=== PATIENT | male | born 1965 | race Two or more races ===

== ENCOUNTER 2025-02-04 11:00 | Outpatient (OUT) | payer MEDICARE, SELFPAY ==
--- OUTSIDE RECORDS SUMMARY | 2025-02-04 11:02 | XMS_ITS | Clinical Summary ---
Author Organization [employer] tem Address [id number] [address] [place] [address] Care Team Providers Care Policy Change Clerks Supervisor Name Role Phone Phil Khalil MD Primary Care Provider [phone] Allergies Active AllergyReactionsCriticalityNoted DateCommentsBee Venom Protein (Honey Bee)05/11/2018 Medications MedicationSigDispense QuantityRefillsLast FilledStart DateEnd DateStatus nicotine (NICODERM CQ) 7 mg/[address] 1 patch on the skin daily.Active gabapentin (NEURONTIN) 600 mg tablet Take 600 mg by mouth 3 (three) times a day.Active melatonin (CIRCADIN) 5 mg tablet Take 5 mg by mouth once daily at bedtime.Active ferrous sulfate (IRON) 325 (65 FE) mg tablet Take 325 mg by mouth daily with breakfast.Active vitamin E,dl-alpha tocopherol, (VITAMIN E, BULK, MISC) Take 180 mg by mouth daily.Active buPROPion HCl, smoking deter, (ZYBAN) 150 mg 12 hr tablet Take 150 mg by mouth Daily at 0630.Active HYDROcodone-acetaminophen (NORCO) 5-325 mg per tablet Take 1 tablet by mouth every 8 (eight) hours as needed for pain.Active aspirin 325 mg tablet Take 325 mg by mouth daily.Active docusate sodium 100 mg capsule Take 100 mg by mouth 2 (two) times a day.Active FLUoxetine (PROzac) 20 MG tablet Take 20 mg by mouth daily.Active aclidinium bromide (TUDORZA PRESSAIR) 400 mcg/actuation aerosol powdr breath activated Inhale 1 puff Daily at 0630.Active albuterol (PROVENTIL HFA;VENTOLIN HFA) 90 mcg/actuation inhaler Inhale 1 puff daily as needed for shortness of breath.Active budesonide-formoterol (SYMBICORT) 160-4.5 mcg/actuation inhaler Inhale 2 puffs 2 (two) times a day.Active diphenhydrAMINE (BENADRYL) 25 mg capsule Take 25 mg by mouth nightly as needed for allergies.Active Social History Tobacco UseTypesPacks/DayYears UsedDateSmoking Tobacco: Never AssessedChildcare AnswerDate KakmxxwmLhehseyzwNzzmpyk77/12/2019EmploymentAnswerDate Recorded DdqsigrbijWwuuedg67/12/2019Purpose - LifeAnswerDate RecordedPurpose and direction in jubrXjtnoux46/11/2021ex and Gender InformationValueDate Recorded Sex Assigned at BirthNot on fileLegal OmpMhrz3410/20/2014 11:21 AM EDTGender IdentityNot on fileSexual OrientationNot on file Last Filed Vital Signs Vital SignReadingTime TakenCommentsBlood Lyoguexl821/8204 12:33 PM EDT Kseta5168 12:33 PM NFFObdvklitodz62.8 ??C (98.2 ??F)06/25/2018 12:33 PM EDTRespiratory Kpwh2362 12:33 PM EDTOxygen Bffhmqcyib86%06/03/2018 1:03 PM EDTInhaled Oxygen Concentration--Zlgwsr630.9 kg (315 lb)05/11/2018 1:20 PM STZMjxptm372.7 cm (5' 8 )05/11/2018 1:20 PM ESTBody Mass Index47.902 1:20 PM EST Plan of Treatment Not on file Medical Devices Not on file Insurance Care Teams Team MemberRelationshipSpecialtyStart DateEnd Date Phil [place] [address] [place] [address] [facility]
--- OUTSIDE RECORDS SUMMARY | 2025-02-04 11:02 | XMS_ITS | Clinical Summary ---
Author Organization [facility] Address [address] [place] [address] Care Team Providers Care Control Clerk Head Name Role Phone Phil Khalil MD Primary Care Provider Phil Khalil MD Unavailable Allergies Active AllergyReactionsCriticalityNoted DateCommentsBee Venom09/04/2022 Other Reaction(s): Unknown Medications MedicationSigDispense QuantityRefillsLast FilledStart DateEnd DateStatus ipratropium-albuterol (Duo-Neb) 0.5-2.5 mg/3 mL nebulizer solution every 6 (six) hours.2Active gabapentin (Neurontin) 300 MG capsule Indications:Other chronic painTake 1 capsule (300 mg) by mouth every 12 (twelve) hours 60 capsule 5Active budesonide-formoterol (Symbicort) 160-4.5 MCG/ACT inhaler Indications:Chronic obstructive pulmonary disease, unspecified (HCC)Inhale 2 puffs in the morning and 2 puffs before bedtime. 10.2 each 1205Active tiotropium (Spiriva Respimat) 2.5 MCG/ACT inhaler Indications:Chronic obstructive pulmonary disease, unspecified COPD type (HCC) Inhale 2 puffs Daily 4 g 5Active albuterol HFA 90 mcg/act inhaler Indications:Chronic obstructive pulmonary disease, unspecified COPD type (HCC) INHALE 1 PUFF BY MOUTH EVERY 4 HOURS NEEDED FOR WHEEZE 18 g 5Active Active Problems ProblemNoted DateDiagnosed DateMedicare annual wellness visit, subsequent 07/27/2024 Assessment & Plan (07/27/2024 2:53 PM EDT): Colonoscopy every 10 years or Cologuard every 3 years ages 50-75 Flu Vaccine yearly Pneumovax and Prevnar Mammo yearly for women and PSA yearly for men Labs/Screening yearly to rule out Diabetes, Chronic Kidney disease and liver disease Hepatitis Screen forat risk populations Shingles vaccine after65 if indicated Tetanus Vaccine every 10 years Lipids yearly under the age of 75 If Smoking history: one time CT scan of chest and Ultrasound of Aorta to screen for Anuerysm Benign essential lbitwzfkxuax76/13/2025 Assessment & Plan (07/27/2024 2:53 PM EDT): Our specific goals, for your hypertension, is to keep your blood pressure less than 140/90, and theimportance of weight control. We made recommendations on how to control your blood pressure, and minimize your risk of these copmplications. We also discussed your current barriers to a healthy living and importance of healthy diet and exercise. Prior to your visit today we have reviewed your chart and formed a plan to assist with providing you the best possible care. We reviewed the possible complications of hypertension including, stroke, heart failure and kidney impairment. In addition, we discussed your medications, the importance of taking them as prescribed. DASH diet handouts Body mass index (BMI) 35.0-35.9, adult07/27/2024 Assessment & Plan (07/27/2024 3:10 PM EDT): Diet and Exercise Encouraged Bilateral primary osteoarthritis of knee4121Trxolt16/21/2023Chronic obstructive pulmonary disease, qilfxcvdicu96/21/2023 Assessment & Plan (07/27/2024 2:53 PM EDT): Today we discussed the possible complications of COPD, including increased risk of respiratory failure, hospitalization and . Your goal for your COPD management are maintain a healthy weight with a BMI of less than 26 and prevent future hospitalizations by using your medications as prescribed and avoiding environments with smoke exposure. We are working together to achieve these goals with the following plans increase activity levels, compliance of medications and a healthier diet. You have been given education handouts and a summary of your care plan. Chronic pain09/04/2022 Assessment & Plan (07/27/2024 2:54 PM EDT): Medication choice and dosage is appropriate for patient's current medical conditions. Patient will continue to be required to be seen in our office at least every three months for monitoring. At eachfollow up visit I will reassess the patient's need for the medication. Patient is to have this medication prescribed only through this office. Failure to follow the rules and regulations will result in tapering and discontinuation of medications if applicable. Patient verbalized understanding. OARRS Report was reviewed for this patient. Pain09/04/20226955Cirluzfosacg52/21/5225Dbexnggtlftosq29/21/2023 Assessment & Plan (07/27/2024 2:53 PM EDT): This is a chronic medical condition that is stable since last assessment. No changes in treatment are suggested at this time. Continue Current meds. Major depressive disorder, single episode, upejzyoexvm50/21/2023Morbid (severe) obesity due to excess yaoihlgp15/21/2023 Assessment & Plan (07/27/2024 3:09 PM EDT): Diet and exercise encouraged Primary osteoarthritis of right ugzswech81/21/2023Skin sensation disturbance 09/04/2022Sleep apnea09/04/2022Tobacco tiwoxysnmj09/21/2023Swelling of lower leg 09/18/2017Pain in unspecified knee09/18/2017Rupture of quadriceps tendon 09/15/2017Strain of quadriceps wfjoss7309/15/2017 Overview (02/14/2023): bilateral Immunizations ImmunizationAdministration DatesNext DueInfluenza, injectable, quadrivalent, preservative free02/14/2023,02/26/2022Influenza, seasonal, intradermal, preservative free01/20/2018Tdap08/18/2017 Family History Medical HistoryRelationNameCommentsDiabetesFatherStrokeFatherhtnMotherRelation NameStatusCommentsFatherDeceasedMotherDeceased Social History Tobacco UseTypesPacks/DayYears UsedDateSmoking Tobacco: Every DayCigarettes0.3 11.9Started: 2014Smokeless Tobacco: Never Tobacco Cessation:Ready to Q uit: Not Asked; Counseling Given: Not Answered Alcohol UseStandard Drinks/WeekCommentsDefer0 (1 standard drink = 0.6 oz pure alcohol)Social Connection and Isolation PanelAnswerDate RecordedIn a typical week, how many times do you talk on the phone with family, friends, or neighbors?More than three times a week05/22/2023How often do you get together with friends or relatives?More than three times a week05/22/2023How often do you attend pentecostalism or orthodox services?More than 4 times per year05/22/2023o you belong to any clubs or organizations such as pentecostalism groups, unions, fraternal or athletic groups, or school groups?Yes05/22/2023How often do you attend meetings of the clubs or organizations you belong to?More than 4 times per year05/22/2023 Are you , , , , never , or living with a partner?Living with stsxvvs6005/22/2023UDIT-CAnswerDate RecordedQ1: How often do you have a drink containing alcohol?Never05/22/2023Q2: How many drinks containing alcohol do you have on a typical day when you are drinking?Patient does not drink05/22/2023Q3: How often do you have six or more drinks on one occasion?Never05/22/2023Overall Financial Resource Strain (CARDIA)AnswerDate RecordedHow hard is it for you to pay for the very basics like food, housing, medical care, and heating?Somewhat hard05/22/2023HQ-2AnswerDate RecordedPatient Health Questionnaire-2 Smvho359Finhighland ridge hospital [place] of Occup[facility] - Occupational Stress QuestionnaireAnswerDate RecordedDo you feel stress - tense, restless, nervous, or anxious, or unable to sleep at night because your mind is troubled all the time - these days?Not at all05/22/2023Exercise Vital SignAnswerDate RecordedOn average, how many days per week do you engage in moderate to strenuous exercise (like a brisk walk)?1 day05/22/2023On average, how many minutes do you engage in exercise at this level?0 min05/22/2023Hunger Vital SignAnswerDate RecordedWithin the past 12 months, you worried that your food would run out before you got the money to buymore.Sometimes true05/22/2023 Within the past 12 months, the food you bought just didn't last and you didn't have money to get more.Sometimes true05/22/2023RAPARE - TransportationAnswer Date RecordedIn the past 12 months, has lack of transportation kept you from medical appointments or from getting medications?No05/22/2023In the past 12 months, has lack of transportation kept you from meetings, work, or from getting things needed for daily living?No05/22/2023Housing Stability Vital SignAnswer Date RecordedIn the last 12 months, was there a time when you were not able to pay the mortgage or rent on time?No05/22/2023Number of Places Lived in the Last YearNot on file05/22/2023In the last 12 months, was there a time when you did not have a steady place to sleep or slept in [facility] (including now)?No 05/22/2023Sex and Gender InformationValueDate RecordedSex Assigned at BirthMale 05/22/2023 10:43 AM ESTLegal VnaWgsc5205/29/2022 7:05 PM EDTGender IdentityMale 05/22/2023 10:43 AM ESTSexual KswmzgyhsczOwvgnpr74/07/2024 10:43 AM EST Last Filed Vital Signs Vital SignReadingTime TakenCommentsBlood Vimptpwu970/72007/27/2024 2:41 PM EDT Zvgjc6713 2:41 PM FYREbllutlmqan34.5 ??C (97.7 ??F)11/14/2023 9:09 AM EDTRespiratory Linf562411/14/2023 9:09 AM EDTOxygen Bqtvfawtsa74%07/27/2024 2:41 PM EDTInhaled Oxygen Concentration--Kjokfb760 kg (248 lb)07/27/2024 2:41 PM EDT Mcjhin326.2 cm (5' 7 )07/27/2024 2:41 PM EDTBody Mass Index38.8407/27/2024 2:41 PM EDT Plan of Treatment Health MaintenanceDue DateLast DoneCommentsCT Wqepwotdnbcv29/27/1964FIT-DNA 1963FIT1963FOBT1963 6837Ikudyhjvgmsee74/27/1964Pneumococcal Vaccine: Pediatrics (0 to 5 Years) and At-Risk Patients (6 to 64 Years) (1 of 2 - PCV)05/13/19829624Dcqkdnmygks89Colorectal Cancer Screening 4COVID-19 Vaccine ( season)2024Influenza Vaccine (#1) /03/2022, 02/26/2022, 01/20/2018Medicare Annual Wellness (AWV) /, 05/22/2023, 02/14/2023 Procedures Procedure NamePriorityDate/TimeAssociated DiagnosisCommentsCOLONOSCOPYRoutine 08/13/2013 12:00 PM EDT from Last 3 Months or Most Recently Relevant to Health Maintenance Results * Colonoscopy (08/13/2013 12:00 PM EDT)Anatomical RegionLateralityModality EndoscopySpecimen (Source)Anatomical Location / LateralityCollection Method / VolumeCollection TimeReceived Time08/13/2013 12:00 PM EDT Narrative 08/13/2013 12:00 PM EDT PERFORMED AT [facility] LOCATION:[id number] polyp and internal hemorrhoids Procedure Note CONVERSION, GENERIC - 08/01/2022 PERFORMED AT [facility] LOCATION:[id number] polyp and internal hemorrhoids Authorizing ProviderResult TypeResult StatusPhil Khalil MDENDOSCOPY PROCEDURE ORDERABLESFinal Result from Last 3 Months or Most Recently Relevant to Health Maintenance Insurance Care Teams Team MemberRelationshipSpecialtyStart DateEnd Date Phil Khalil MD [address] [facility] [address] [place] [address] [facility] Phil Khalil MD [address] [facility] [address] [place] [address] PCP - Owznac66/1/23
== END 2025-02-04 11:01 | disposition home or self-care (01) ==
LOC: FHNEUROLOG 11:01
PROVIDERS: PCP Family Medicine; Visit Provider Psychiatry & Neurology Neurology
DX: G47.33 Obstructive sleep apnea (adult) (pediatric) (principal)
CPT/HCPCS: G0463